=== PATIENT | female | born 1965 | race Caucasian/White ===

== ENCOUNTER 2018-10-25 19:37 | Emergency (ER) | payer OTHER ==
--- NOTE | 2018-10-25 19:43 | PDOC ---
Rapid Medical Evaluation Chief Complaint: Back Pain Time Seen by Provider: 10/25/18 19:41 Medical Evaluation: Allergies Allergy/AdvReac Type Severity Reaction Status Date / Time latex [Latex] Allergy Intermediate Difficulty Verified 11/24/13 01:22 Breathing-"SWELLING" Penicillins Allergy Mild Hives Verified 11/24/13 01:22 10/25/18 19:41 I have performed a brief in-person evaluation of this patient. The patient presents with a chief complaint of: Pt w/ a h/o sciatica, osteoporosis, c/o R lower back pain radiating to the RLE for 1 week, not better with lyrica (which she takes for her fibromyalgia), meloxicam, tylenol which have not helped. Pertinent physical exam findings: Pt in mild discomfort from pain. Will order robaxin and toradol The patient will proceed to the ED for further evaluation. 10/25/18 19:43 10/25/18 20:22 Discharge Disposition - Diagnosis Back pain Qualifiers: Back pain location: low back pain Chronicity: acute Back pain laterality: right Sciatica presence: with sciatica Sciatica laterality: sciatica of right side Qualified Code(s): M54.41 - Lumbago with sciatica, right side - Referrals - Patient Instructions - Post Discharge Activity
[2018-10-25 19:44] VITALS: BP 94/63; PULSE 69; TEMP 98.1; BMI 29.2
[2018-10-25] MEDS ORDERED: METHOCARBAMOL 500 MG TABLET PO ONE (20:23)
[2018-10-25] MEDS ORDERED: KETOROLAC TROMETHAMINE 15 MG/ML VIAL IM ONE (20:23)
[2018-10-25] MEDS ORDERED: METHOCARBAMOL 500 MG TABLET ONE (20:51)
[2018-10-25] MEDS ORDERED: KETOROLAC TROMETHAMINE 15 MG/ML VIAL ONE ×2 (20:51→20:57)
--- NOTE | 2018-10-25 20:55 | PDOC ---
History of Present Illness - General Chief Complaint: Back Pain Stated Complaint: BACK PAIN Time Seen by Provider: 10/25/18 19:41 History Source: Patient - History of Present Illness Initial Comments: 10/25/18 20:40 53 year old female with right sided lower back pain worse with movement for the last 1 week. patient has been taking meloxicam and lyrica with no improvement in pain'. denies numbness or tingling to the lower extremity. Denies incontinence of bowel and urine. PMHX: abdominal surgery; fibromyalgia 10/25/18 21:02 Past History - Past Medical History Allergies/Adverse Reactions: Allergies Allergy/AdvReac Type Severity Reaction Status Date / Time latex [Latex] Allergy Intermediate Difficulty Verified 10/25/18 19:44 Breathing-"SWELLING" Penicillins Allergy Mild Hives Verified 10/25/18 19:44 Home Medications: Ambulatory Orders Levothyroxine [Synthroid -] 100 mcg PO DAILY@0700 #0 tablet 11/22/12 Pantoprazole Sodium [Protonix -] 40 mg PO DAILY 09/20/13 Ascorbic Acid [C-1000] 1,000 mg PO DAILY 11/12/13 Cholecalciferol (Vitamin D3) [Vitamin D3] 5,000 unit PO DAILY 11/12/13 Cyanocobalamin (Vitamin B-12) [Vitamin B-12] 1,000 mcg SL DAILY 11/12/13 Docusate Sodium [Colace -] 100 mg PO TID #0 capsule 11/15/13 Tramadol HCl/APAP 37.5/325Mg [Ultracet 37.5/325Mg Tablet] 2 tab PO Q6H PRN 11/23 Metronidazole [Flagyl] 500 mg PO TID #42 tablet 11/26/13 levoFLOXacin [Levaquin -] 500 mg PO DAILY #14 tablet 11/26/13 Oxycodone HCl/Acetaminophen [Percocet 5-325 mg Tablet -] 1 - 2 tab PO Q4H PRN # 20 tablet 11/27/13 Cyclobenzaprine HCl [Flexeril -] 10 mg PO BID PRN #14 tablet 10/25/18 Ibuprofen 600 mg PO QID PRN #20 tablet 10/25/18 Anemia: Yes Asthma: Yes (ALLERGIES SEASONAL) Cancer: No Cardiac Disorders: No CVA: No COPD: Yes CHF: No Dementia: No Diabetes: No GI Disorders: Yes (acid reflux.s/p bowel resection) Disorders: Yes (kidney stones.hematuria.fibroids) HTN: No Hypercholesterolemia: Yes Liver Disease: No Seizures: No Thyroid Disease: Yes (HYPO) Other medical history: chronic back problems, fibromyalgia - Surgical History Abdominal Surgery: Yes (colon resection) Appendectomy: No Cardiac Surgery: No Cholecystectomy: No Lung Surgery: No Neurologic Surgery: No Orthopedic Surgery: Yes (arthroscopy left knee) - Suicide/Smoking/Psychosocial Hx Smoking Status: No Smoking History: Never smoked Have you smoked in the past 12 months: No Number of Cigarettes Smoked Daily: 0 If you are a former smoker, when did you quit?: 2YRS AGO Hx Alcohol Use: No Drug/Substance Use Hx: No Substance Use Type: None Hx Substance Use Treatment: No Review of Systems - Review of Systems Able to Perform ROS?: Yes Is the patient limited Malian proficient: No Musculoskeletal: Yes: Back Pain. No: Symptoms Reported, See HPI, Gout, Joint Pain, Joint Swelling, Muscle Pain, Muscle Weakness, Neck Pain, Joint Stiffness, Other Integumentary: No: Symptoms Reported, See HPI, Bruising, Change in Color, Change in Hair/Nails, Dryness, Erythema, Flushing, Lesions, Lumps, Pallor, Pruritus, Rash, Sweating, Other *Physical Exam - Vital Signs Last Vital Signs Temp Pulse Resp BP Pulse Ox 98.1 F 69 18 94/63 98 10/25/18 19:41 10/25/18 19:41 10/25/18 19:41 10/25/18 19:41 10/25/18 19:41 - Physical Exam General Appearance: Yes: Appropriately Dressed Musculoskeletal: positive: Normal Inspection, Other (right lateral lumbar area tenderness on palpation). negative: CVA Tenderness, Vertebral Tenderness Extremity: positive: Normal Capillary Refill, Normal Inspection, Normal Range of Motion Integumentary: positive: Normal Color, Dry, Warm Neurologic: positive: Fully Oriented, Alert Progress Note - Progress Note Progress Note: A: back pain P: flexeril ibuprofen *DC/Admit/Observation/Transfer Diagnosis at time of Disposition: Back pain Qualifiers: Back pain location: low back pain Chronicity: acute Back pain laterality: right Sciatica presence: with sciatica Sciatica laterality: sciatica of right side Qualified Code(s): M54.41 - Lumbago with sciatica, right side - Discharge Dispostion Disposition: HOME - Prescriptions Prescriptions: Cyclobenzaprine HCl [Flexeril -] 10 mg PO BID PRN #14 tablet PRN Reason: Muscle Spasms Ibuprofen 600 mg PO QID PRN #20 tablet PRN Reason: Back Pain - Referrals Referrals: Lizz Ortega MD [Primary Care Provider] - Amos Machado DO [Staff Physician] - Call tomorrow Hammad Medel MD [Staff Physician] - Call tomorrow - Patient Instructions Printed Discharge Instructions: Low Back Pain Additional Instructions: do light stretches Apply ice to the area for the first 24 hours. Then alternate with ice and heat after. Take ibuprofen every 6 hours as needed for pain. Take Flexeril as prescribed for muscle spasm. Flexeril can make you sleepy, do not drive or operate heavy machinery after taking the medication. Follow-up with an orthopedic doctor if symptoms persist. A referral was given to you today. Return to the emergency room for any worsening symptoms. - Post Discharge Activity Forms/Work/School Notes: Back to Work
[2018-10-25] MEDS ORDERED: KETOROLAC TROMETHAMINE 30 MG/1 ML VIAL IM ONE (20:56)
[2018-10-25] MEDS ORDERED: diazePAM 5 MG TABLET PO ONE (20:56)
[2018-10-25] MEDS ORDERED: diazePAM 5 MG TABLET ONE (20:58)
== END 2018-10-25 21:12 | disposition home or self-care (01) ==
LOC: JERFT 19:37
PROC: 3E0233Z Introduction of Anti-inflammatory into Muscle, Percutaneous Approach (ICD-10-PCS; principal; 2018-10-25)
DX: M54.41 Lumbago with sciatica, right side (principal); M79.7 Fibromyalgia; E03.9 Hypothyroidism, unspecified; Z87.19 Personal history of other diseases of the digestive system; Z87.09 Personal history of other diseases of the respiratory system
CPT/HCPCS: 99282-25

== ENCOUNTER → 2018-11-20 | Outpatient (CLI) | payer OTHER | LOC: YHH 13:59 ==

== ENCOUNTER 2019-04-26 09:03 | Day surgery (SDC) | payer OTHER ==
[2019-04-25 14:50] VITALS: BMI 30.1
[2019-04-26 09:22] VITALS: TEMP 99.6
[2019-04-26] MEDS ORDERED: MIDAZOLAM HCL 2 MG/2 ML SINGLE DOSE VIAL ONE (11:22)
[2019-04-26] MEDS ORDERED: LIDOCAINE HCL 1%, 10 MG/ML (20ML VIAL) PNB ONE (11:41)
[2019-04-26] MEDS ORDERED: BUPIVACAINE HCL/PF 0.5% (5MG/ML) 10 ML VIAL IJ ONE (11:41)
[2019-04-26] MEDS ORDERED: IOHEXOL 180 MG/1 ML ML IJ ONE (11:41)
[2019-04-26] MEDS ORDERED: ACETAMINOPHEN 325 MG TABLET (FP) ONE (13:26)
[2019-04-26] MEDS ORDERED: ACETAMINOPHEN 325 MG TABLET (FP) PO ONE (13:35)
[2019-04-26 15:53] VITALS: BP 112/67; PULSE 80
--- NOTE | 2019-04-29 20:12 | PROC ---
Procedure Note Procedure: Procedure: Date: 04/26/2019 : 1965 Age: 54 Year(s) Sex: Female Name of the patient: Cheyenne Cobian Preoperative Diagnosis: Lower back pain, Lumbar facet arthropathy Right Postoperative Diagnosis: Same Procedure Performed: Lumbar facet Medial Branch diagnostic Block at L3-S1 levels Right Anesthesia: Local /MAC Procedure: I discussed with the patient in detail about the risks, benefits and alternatives to treatment not only limited to infection, headache, numbness , weakness and injury to nerves, spinal cord, blood vessels and muscles. The patient understood, agreed and signed the written consent. The patient was placed in the prone position with the head, abdomen and legs supported with the pillows. The patients lower back was prepped and draped in a sterile fashion. Under C-arm and Scottie dog view eye was identified the L2-3, L3-4 and L4-5 levels on Right side. At the level of L3-4 (L3), 2 ml of Lidocaine was infiltrated into the skin and subcutaneous tissue. A 3.5 inch #22 guage spinal needle was used to approach the eye of the Scottie dog in the oblique view until the tip of the needle contacted the bone with the use of intermittent fluoroscopy. omnipaque contrast was injected to see the spread of the dye. A solution of 1 ml of preservative free 0.5% Marcaine was injected at this level. Similar procedure was repeated at Right L4-5 (L4) and L5-S1 (L5) level. The patient tolerated the procedure well. Bleeding was checked. There were no immediate complications. The patient was observed and asked about pain level. The patient mentioned that there was improvement was more than 80%. The patient was told to apply ice at the injection sites. If there is any problem, call my office or report to the ER ^ Chris Curtis M.D.
== END 2019-04-26 15:58 | disposition home or self-care (01) ==
LOC: JASU-SURG 09:03
PROVIDERS: ATTEND Physical Medicine & Rehabilitation
PROC: 3E0T33Z Introduction of Anti-inflammatory into Peripheral Nerves and Plexi, Percutaneous Approach (ICD-10-PCS; 2019-04-26)
PROC: BR16YZZ Fluoroscopy of Lumbar Facet Joint(s) using Other Contrast (ICD-10-PCS; 2019-04-26)
PROC: 3E0T3BZ Introduction of Anesthetic Agent into Peripheral Nerves and Plexi, Percutaneous Approach (ICD-10-PCS; principal; 2019-04-26 13:30)
DX: M47.896 Other spondylosis, lumbar region (principal); M54.5 Low back pain

== ENCOUNTER 2019-11-11 14:00 | Emergency (ER) | payer OTHER ==
--- NOTE | 2019-11-11 14:07 | PDOC ---
Rapid Medical Evaluation Time Seen by Provider: 11/11/19 14:06 Medical Evaluation: Allergies Allergy/AdvReac Type Severity Reaction Status Date / Time latex [Latex] Allergy Intermediate Difficulty Verified 06/07/19 07:59 Breathing-"SWELLING" Penicillins Allergy Mild Hives Verified 06/07/19 07:59 11/11/19 14:07 I have performed a brief in-person evaluation of this patient. The patient presents with a chief complaint of: L foot injury 2 days ago, limping Pertinent physical exam findings:contusions to L foot I have ordered the following:xray The patient will proceed to the ED for further evaluation. Discharge Disposition - Diagnosis Contusion of left foot Qualifiers: Encounter type: initial encounter Qualified Code(s): S90.32XA - Contusion of left foot, initial encounter - Referrals - Patient Instructions - Post Discharge Activity
[2019-11-11 14:17] VITALS: BP 99/53; PULSE 95; TEMP 98.2; BMI 31.8
--- NOTE | 2019-11-11 14:57 | PDOC ---
History of Present Illness - General Chief Complaint: Injury Stated Complaint: LT ANKLE INJURY Time Seen by Provider: 11/11/19 14:06 - History of Present Illness Initial Comments: 11/11/19 14:55 54-year-old female presents for evaluation of left foot pain after twisting type injury 2 days ago she points to the dorsum of the left foot in the area of the fourth metatarsal as the area of her discomfort. Past History - Medical History Allergies/Adverse Reactions: Allergies Allergy/AdvReac Type Severity Reaction Status Date / Time latex [Latex] Allergy Intermediate Difficulty Verified 11/11/19 14:07 Breathing-"SWELLING" Penicillins Allergy Mild Hives Verified 11/11/19 14:07 Home Medications: Ambulatory Orders Cyanocobalamin Vit B-12 Inj. [Redisol] 1,000 mcg IM WEEKLY 04/25/19 Ergocalciferol (Vitamin D2) [Vitamin D2] 50,000 unit PO WEEKLY 04/25/19 Fluoxetine HCl [Prozac] 40 mg PO DAILY 04/25/19 Levothyroxine [Synthroid -] 112 mcg PO DAILY 04/25/19 Meclizine HCl 12.5 mg PO PRN 04/25/19 Meloxicam 15 mg PO DAILY 04/25/19 Pregabalin [Lyrica -] 150 mg PO TID 04/25/19 Quetiapine Fumarate [Seroquel -] 50 mg PO TID 04/25/19 Quetiapine Fumarate [Seroquel -] 200 mg PO HS 04/25/19 Azelastine/Fluticasone [Azelastin-Flutic 137-50Mcg Spr] 23 gm NS ASDIR 11/11/19 Hyoscyamine Sulfate [Levsin] 0.125 mg PO DAILY 11/11/19 Oxcarbazepine [Trileptal] mg PO DAILY 11/11/19 Pantoprazole Sodium [Protonix -] 40 mg PO DAILY 11/11/19 Anemia: No (history of) Asthma: Yes (ALLERGIES SEASONAL) Cancer: No Cardiac Disorders: No CVA: No COPD: No CHF: No Dementia: No Diabetes: No GI Disorders: Yes (acid reflux.s/p bowel resection) Disorders: No HTN: No Hypercholesterolemia: Yes Liver Disease: No Seizures: No Thyroid Disease: Yes (HYPO) - Surgical History Abdominal Surgery: Yes (colon resection) Appendectomy: No Cardiac Surgery: No Cholecystectomy: No Lung Surgery: No Neurologic Surgery: No Orthopedic Surgery: Yes (arthroscopy left knee) - Reproductive History Is Patient Now?: No - Psycho-Social/Smoking History Smoking Status: No Smoking History: Never smoked Have you smoked in the past 12 months: No Number of Cigarettes Smoked Daily: 0 If you are a former smoker, when did you quit?: 2004 - Substance Abuse Hx (Audit-C & DAST Scrn) How often the patient has a drink containing alcohol: Never Score: In Men: 4 or > Positive; In Women: 3 or > Positive: 0 Screen Result (Pos requires Nsg. Audit-10AR): Negative In the last yr the pt used illegal drug/Rx for NonMed reason: No Score: Yes response is considered Positive: 0 Screen Result (Positive result requires Nsg. DAST-10): Negative Review of Systems - Review of Systems Musculoskeletal: Yes: Joint Pain *Physical Exam - Vital Signs Last Vital Signs Temp Pulse Resp BP Pulse Ox 98.2 F 95 H 18 99/53 L 100 11/11/19 14:15 11/11/19 14:15 11/11/19 14:15 11/11/19 14:15 11/11/19 14:15 - Physical Exam 11/11/19 14:55 There is a small area of ecchymosis on the skin overlying the fourth MTPJ. There is tenderness at the fourth MTPJ with pain with mild compression of the metatarsals. No tenderness at the medial lateral malleolus ATFL fifth metatarsal knee proximal fibula or along its distal course. No gross sensorimotor deficits neurovascular intact. Medical Decision Making - Medical Decision Making 11/11/19 14:56 X-rays of the left foot show a fourth metatarsal fracture at the neck. Nonweightbearing follow-up with orthopedics crutches [place] shoe Tylenol for pain I have reviewed the pathophysiology with the patient. They are in agreement with the treatment plan all questions were answered to their satisfaction. Understanding for follow-up without fail was also conveyed to the patient. Again they are in agreement. Discharge - Discharge Information Problems reviewed: Yes Clinical Impression/Diagnosis: Foot fracture, left Contusion of left foot Qualifiers: Encounter type: initial encounter Qualified Code(s): S90.32XA - Contusion of left foot, initial encounter Condition: Stable Disposition: HOME - Admission No - Follow up/Referral Referrals: Amos Machado DO [Staff Physician] - - Patient Discharge Instructions Additional Instructions: Tylenol for pain as directed. Return to the emergency room for worsening symptoms. Without fail follow-up with orthopedic surgery in 1 to 2 days for further evaluation and treatment options. - Post Discharge Activity
== END 2019-11-11 15:08 | disposition home or self-care (01) ==
LOC: JERFT 14:00
DX: S90.32XA Contusion of left foot, initial encounter (principal)
CPT/HCPCS: 73630-TC-LT; 99283-25

== ENCOUNTER 2020-02-04 04:55 | Day surgery (SDC) | payer OTHER ==
[2020-02-03 10:05] VITALS: BMI 28.3
[2020-02-04] MEDS ORDERED: MIDAZOLAM HCL 2 MG/2 ML SINGLE DOSE VIAL ONE (16:58)
[2020-02-04] MEDS ORDERED: ceFAZolin SODIUM 1 GM VIAL IVPB ONE (17:13)
[2020-02-04] MEDS ORDERED: ceFAZolin SODIUM 1 GM VIAL ONE (17:16)
[2020-02-04] MEDS ORDERED: LIDOCAINE HCL 1%, 10 MG/ML (20ML VIAL) ONE (17:17)
[2020-02-04] MEDS ORDERED: BUPIVACAINE HCL/PF 0.25% (2.5MG/ML) 10 ML VIAL ONE (17:17)
[2020-02-04] MEDS ORDERED: LIDOCAINE HCL 1%, 10 MG/ML (20ML VIAL) NR ONE (17:28)
[2020-02-04] MEDS ORDERED: BUPIVACAINE HCL/PF 0.25% (2.5MG/ML) 10 ML VIAL IJ ONE (17:28)
[2020-02-04] MEDS ORDERED: oxyCODONE HCL 5 MG TABLET PO PRN (18:21)
[2020-02-04] MEDS ORDERED: ONDANSETRON 4 MG/2 ML VIAL IVPUSH PRN (18:21)
[2020-02-04] MEDS ORDERED: LACTATED RINGERS SOLUTION 1,000 ML IV SCH (18:30)
[2020-02-04] MEDS ORDERED: oxyCODONE HCL 5 MG TABLET ONE (18:54)
[2020-02-04 19:34] VITALS: BP 117/74; PULSE 72; TEMP 97.8
== END 2020-02-04 19:35 | disposition home or self-care (01) ==
LOC: JASU-SURG 04:55
PROVIDERS: ATTEND Physical Medicine & Rehabilitation
PROC: 4B01XVZ Measurement of Peripheral Nervous Stimulator, External Approach (ICD-10-PCS; 2020-02-04)
PROC: 0JH70DZ Insertion of Multiple Array Stimulator Generator into Back Subcutaneous Tissue and Fascia, Open Approach (ICD-10-PCS; 2020-02-04)
PROC: 01HY0MZ Insertion of Neurostimulator Lead into Peripheral Nerve, Open Approach (ICD-10-PCS; principal; 2020-02-04 13:30)
DX: M54.16 Radiculopathy, lumbar region (principal); M54.5 Low back pain
CPT/HCPCS: 63650; C1897

== ENCOUNTER 2021-01-15 04:48 | Day surgery (SDC) | payer OTHER ==
[2021-01-14 12:40] VITALS: BMI 29.2
[2021-01-15] MEDS ORDERED: GENTAMICIN SO4 80 MG/2 ML VIAL ONE (07:06)
[2021-01-15] MEDS ORDERED: LIDOCAINE HCL 1%, 10 MG/ML (20ML VIAL) ONE (07:06)
[2021-01-15] MEDS ORDERED: BUPIVACAINE HCL/PF 0.5% (5MG/ML) 10 ML VIAL ONE ×2 (07:07→07:23)
[2021-01-15] MEDS ORDERED: DEXAMETHASONE SOD PHOSPHATE 4 MG/1 ML VIAL ONE (07:23)
[2021-01-15] MEDS ORDERED: PROPOFOL 20 ML ONE ×3 (07:32→08:01)
[2021-01-15] MEDS ORDERED: MIDAZOLAM HCL 2 MG/2 ML SINGLE DOSE VIAL ONE ×2 (07:33)
[2021-01-15] MEDS ORDERED: CLINDAMYCIN PHOSPHATE 600 MG/4 ML VIAL ONE (07:58)
[2021-01-15] MEDS ORDERED: CLINDAMYCIN PHOSPHATE 900 MG/6 ML VIAL IVPB ONE (07:59)
[2021-01-15] MEDS ORDERED: LIDOCAINE HCL 1%, 10 MG/ML (20ML VIAL) NR ONE (08:01)
[2021-01-15] MEDS ORDERED: BUPIVACAINE HCL/PF 0.5% (5MG/ML) 10 ML VIAL IJ ONE (08:02)
[2021-01-15] MEDS ORDERED: ACETAMINOPHEN INJECTION 100 ML IVPB ONE (08:20)
[2021-01-15] MEDS ORDERED: oxyCODONE HCL 5 MG TABLET PO PRN (08:44)
[2021-01-15] MEDS ORDERED: ONDANSETRON 4 MG/2 ML VIAL IVPUSH PRN (08:44)
[2021-01-15] MEDS ORDERED: LACTATED RINGERS SOLUTION 1,000 ML IV SCH (08:45)
[2021-01-15 11:50] VITALS: PULSE 64
[2021-01-15 12:16] VITALS: BP 135/84; TEMP 97.8
== END 2021-01-15 11:38 | disposition home or self-care (01) ==
LOC: JASU-SURG 04:48
PROVIDERS: ATTEND Podiatrist Foot Surgery
PROC: 0SRQ0JZ Replacement of Left Toe Phalangeal Joint with Synthetic Substitute, Open Approach (ICD-10-PCS; principal; 2021-01-15 07:30)
DX: M20.42 Other hammer toe(s) (acquired), left foot (principal)
CPT/HCPCS: 73630-TC-LT; 88304-TC; 88311-TC; 94760; J0131

== ENCOUNTER 2021-05-14 04:31 | Day surgery (SDC) | payer OTHER ==
[2021-05-12 11:41] VITALS: BMI 30.1
[2021-05-14] MEDS ORDERED: PROPOFOL 20 ML ONE ×3 (15:36→16:25)
[2021-05-14] MEDS ORDERED: MIDAZOLAM HCL 2 MG/2 ML SINGLE DOSE VIAL ONE (15:36)
[2021-05-14] MEDS ORDERED: LIDOCAINE HCL 1%, 10 MG/ML (20ML VIAL) ONE (15:41)
[2021-05-14] MEDS ORDERED: BUPIVACAINE HCL/PF 0.5% (5MG/ML) 10 ML VIAL ONE (15:42)
[2021-05-14] MEDS ORDERED: DEXAMETHASONE SOD PHOSPHATE 4 MG/1 ML VIAL ONE (15:42)
[2021-05-14] MEDS ORDERED: CLINDAMYCIN PHOSPHATE 600 MG/4 ML VIAL ONE (16:02)
[2021-05-14] MEDS ORDERED: CLINDAMYCIN PHOSPHATE 600 MG/4 ML VIAL IVPB ONE (16:02)
[2021-05-14] MEDS ORDERED: LIDOCAINE HCL 1%, 10 MG/ML (20ML VIAL) NR ONE (16:03)
[2021-05-14] MEDS ORDERED: BUPIVACAINE HCL/PF 0.5% (5MG/ML) 10 ML VIAL IJ ONE (16:03)
[2021-05-14] MEDS ORDERED: GENTAMICIN SO4 80 MG/2 ML VIAL IVPB ONE (16:03)
[2021-05-14] MEDS ORDERED: DEXAMETHASONE SOD PHOSPHATE 4 MG/1 ML VIAL IVPUSH ONE (16:40)
[2021-05-14 18:31] VITALS: BP 127/68; PULSE 68; TEMP 98.1
== END 2021-05-14 18:25 | disposition home or self-care (01) ==
LOC: JASU-SURG 04:31
PROVIDERS: ATTEND Podiatrist Foot Surgery
PROC: 0SRP0JZ Replacement of Right Toe Phalangeal Joint with Synthetic Substitute, Open Approach (ICD-10-PCS; principal; 2021-05-14 14:30)
DX: M20.41 Other hammer toe(s) (acquired), right foot (principal)
CPT/HCPCS: 73630-TC-RT-FY; 88305-TC; 88311-TC